=== PATIENT | female | born 1985 | race Asian ===

== ENCOUNTER 2024-01-19 18:29 | Emergency (ER) | payer BC, OTHER ==
[2024-01-19 18:37] VITALS: BP 159/95; PULSE 76; RESP 18; TEMP 98.1; BMI 29.6
[2024-01-19 19:25] LABS: BASO % 0.5 % (0-2.0); EOS % 1.9 % (0-4.5); HEMOGLOBIN 11.6 GM/dL (10.7-15.3); LYMPH % 31.2 % (8-40); MCH 23.3 pg (25.7-33.7); MCHC 32.1 g/dl (32.0-36.0); MEAN CELL VOLUME 72.4 fl (80-96); MEAN PLT VOLUME 9.1 fl (7.5-11.1); MONO % 5.3 % (3.8-10.2); NEUT % 61.1 % (42.8-82.8); PLATELET COUNT 238 10^3/uL (134-434); RBC 4.97 M/mm3 (3.60-5.2); RDW 15.1 % (11.6-15.6); WHITE BLOOD COUNT 9.1 K/mm3 (4.0-10.0)
[2024-01-19 19:30] LABS: URINE APPEARANCE CLEAR; URINE BILIRUBIN NEGATIVE (NEGATIVE); URINE COLOR YELLOW; URINE GLUCOSE (UA) NEGATIVE (NEGATIVE); URINE KETONE NEGATIVE (NEGATIVE); URINE LEUK ESTERASE NEGATIVE (NEGATIVE); URINE NITRITE NEGATIVE (NEGATIVE); URINE PROTEIN NEGATIVE (NEGATIVE); URINE UROBILINOGEN 0.2 mg/dL (0.2-1.0)
[2024-01-19 19:33] LABS: HCG,QUALITATIVE URINE Negative
[2024-01-19 19:33] LABS: INR 0.95 (0.83-1.09); PROTHROMBIN TIME (PATIENT) 10.7 SEC (9.7-13.0)
[2024-01-19 19:36] LABS: ACTIVATED PTT 32.1 SECONDS (25.2-36.5)
[2024-01-19 19:41] LABS: POTASSIUM 4.4 mmol/L (3.5-5.1)
[2024-01-19 19:43] LABS: CALCIUM 9.1 mg/dL (8.5-10.1)
[2024-01-19 19:44] LABS: BLOOD UREA NITROGEN 17.6 mg/dL (7-18); MAGNESIUM 2.4 mg/dL (1.8-2.4)
[2024-01-19 19:47] LABS: CREATININE 0.8 mg/dL (0.55-1.3)
[2024-01-19 19:48] LABS: BILIRUBIN,TOTAL 0.2 mg/dL (0.2-1)
[2024-01-19 19:49] LABS: TOT PROT 7.7 g/dl (6.4-8.2)
[2024-01-19] MEDS ORDERED: PANTOPRAZOLE SODIUM 40 MG VIAL ONE (20:58)
[2024-01-19] MEDS: PANTOPRAZOLE SODIUM 40 MG VIAL IVPUSH ONE (21:06)
== END 2024-01-19 22:06 | disposition admitted as inpatient to this hospital (09) ==
LOC: JER 18:29
PROC: 3E033GC Introduction of Other Therapeutic Substance into Peripheral Vein, Percutaneous Approach (ICD-10-PCS; principal; 2024-01-19)
DX: R07.89 Other chest pain (principal); R06.09 Other forms of dyspnea; Z20.822 Contact with and (suspected) exposure to COVID-19
CPT/HCPCS: 0241U-QW; 36415; 71045-TC-FY; 71275-TC; 80053; 81003; 83735; 83880; 84484; 84703; 85025; 85610; 85730; 87086; 93005; 93010; 93308; 99285-25; Q9967

== ENCOUNTER 2024-03-07 10:01 | Emergency (ER) | payer BC, OTHER ==
[2024-03-07] MEDS ORDERED: IBUPROFEN 600 MG TABLET (FP) PO ONE (10:12)
[2024-03-07] MEDS: IBUPROFEN 600 MG TABLET (FP) PO ONE (10:15)
[2024-03-07 12:22] VITALS: BP 139/72; PULSE 89; RESP 20; TEMP 97.6; BMI 27.4
== END 2024-03-07 13:18 | disposition home or self-care (01) ==
LOC: JERFT 10:01
DX: M79.672 Pain in left foot (principal)
CPT/HCPCS: 73630-TC-LT; 99283-25